=== PATIENT | female | born 1935 | race Caucasian/White ===

== ENCOUNTER 2022-09-04 21:37 | Emergency (ER) | payer MEDICARE ==
[~2022-09-04] VITALS: Ht 165.1 cm; Wt 68.0 kg
[~2022-09-04 21:37] MED LIST: ASPIR 8181 MG PO; ATENOLOL25 MG PO; ATORVASTATIN CA20 MG PO; BACTRIM DS TAB1 EACH PO; BIOTIN1 M1 PO; CYCLOBENZAPRINE10 MG PO; ECHINACEA HERB380 MG PO; FLONASE ALLERG9.9 ML; GLUCOSAMINE CH1 EAC7 PO; LEVOTHYROXINE75 MCG PO; LEXAPRO10 MG PO; LIPITOR20 MG PO; MULTIVITAMINS1 EAC7 PO; PREMARIN30 GM PV; RANITIDINE HCL150 MG PO; VITAMIN D-32000 UNIT PO
--- NOTE | 2022-09-06 22:00 | EKG ---
[facility] [address] [facility] [place] [address] Signed Sinus bradycardia with 1st degree AV block with premature atrial complexes with aberrant conduction Septal infarct , age undetermined Abnormal ECG No previous ECGs available Confirmed by Emiliano Trevizo MD () on 09/06/2022 10:00:25 PM Electronically Signed By: EMILIANO TREVIZO MD [id number] PATIENT NAME: JACKIE SCHRADER RENETTA Electrocardiogram DATE OF : 37 PHYSICIAN: EMILIANO TREVIZO MD REPORT #: [id number] REPORT IS CONFIDENTIAL AND NOT TO BE RELEASED WITHOUT AUTHORIZATION
== END 2022-09-04 23:34 | disposition home or self-care (01) ==
LOC: ED 21:37
DX: I10 Essential (primary) hypertension (principal); E03.9 Hypothyroidism, unspecified; K21.9 Gastro-esophageal reflux disease without esophagitis; E78.00 Pure hypercholesterolemia, unspecified; Z79.899 Other long term (current) drug therapy
CPT/HCPCS: 36415; 71045; 80048; 81003; 84484; 85025; 85379; 99284-25

== ENCOUNTER 2023-12-02 08:05 | Emergency (ER) | payer MEDICARE ==
[~2023-12-02] VITALS: Ht 160 cm; Wt 58.0 kg
[~2023-12-02 08:05] MED LIST changes: +ALENDRONATE SOD70 MG PO; +CEPHALEXIN500 M1 PO; +EYE MULTIVITAM1 EAC4 PO; +IRON256 MG PO; +NORVASC2.5 MG PO; +TURMERIC-GINGE1 EACH PO; +VITAMIN C250 MG PO
[2023-12-02 08:34] LABS: HEMOGLOBIN 11.4 g/dL (12.0-18.0)
[2023-12-02 08:36] LABS: HEMATOCRIT 34.8 % (35.0-50.0); MCH 27.4 (27-36); MCHC 32.8 g/dl (30-36); MCV 83.5 fl (81-99); PLATELET COUNT 319 K/uL (140-440); RBC 4.17 M/ul (4.3-5.7); RDW 14.3 (10.5-15.0)
[2023-12-02 08:45] LABS: ALBUMIN 2.6 g/dL (3.4-5.0); ALBUMIN/GLOBULIN RATIO 0.62 (1.1-2.4); ANION GAP 14.6 (7-21); BILIRUBIN, TOTAL 0.6 ng/dL (0.2-1.0); BUN/CREATININE RATIO 12.85 (6.0-28.6); CREATININE, SERUM 0.7 mg/dL (0.55-1.02); POTASSIUM 3.6 mmol/L (3.5-5.1); PROTEIN, TOTAL 6.8 g/dL (6.4-8.2)
[2023-12-02 08:51] LABS: BANDS, MANUAL DIFF 7; EOSINOPHILS, MANUAL DIFF 1; LYMPHOCYTES, MANUAL DIFF 26; MONOCYTES, MANUAL DIFF 9; NEUTROPHILS, MANUAL DIFF 57
[2023-12-02 09:05] LABS: ABO A; ANTIBODY SCREEN NEGATIVE; RH POSITIVE
[2023-12-02] MEDS ORDERED: ZITHROMAX250 MG PO (09:24)
[2023-12-02] MEDS ORDERED: SODIUM CHLORIDE 0.9% 500 ML IV PRN (09:30)
[2023-12-02] MEDS ORDERED: AZITHROMYCIN/DEXTROSE 500 MG/250 ML BAG IV ONE (09:30)
[2023-12-02 11:30] VITALS: BP 149/85
== END 2023-12-02 11:30 | disposition home or self-care (01) ==
LOC: ED 08:05
PROVIDERS: Emergency Medicine
DX: J18.9 Pneumonia, unspecified organism (principal); E87.1 Hypo-osmolality and hyponatremia; E78.00 Pure hypercholesterolemia, unspecified; I10 Essential (primary) hypertension; Z88.8 Allergy status to other drugs, medicaments and biological substances; Z79.899 Other long term (current) drug therapy
CPT/HCPCS: 36415; 71045; 80053; 85025; 86850; 86900; 86901; 96365; 99284-25; J0456; J7040

== ENCOUNTER 2024-02-08 00:33 | Emergency (ER) | payer MEDICARE ==
[~2024-02-08] VITALS: Ht 160 cm; Wt 58.5 kg
[~2024-02-08 00:33] MED LIST changes: +ZITHROMAX250 MG PO
[2024-02-08 01:22] VITALS: BP 175/85
== END 2024-02-08 01:28 | disposition home or self-care (01) ==
LOC: ED 00:33
DX: L76.22 Postprocedural hemorrhage of skin and subcutaneous tissue following other procedure (principal); I10 Essential (primary) hypertension; Z88.8 Allergy status to other drugs, medicaments and biological substances; Z79.890 Hormone replacement therapy; Z79.899 Other long term (current) drug therapy
CPT/HCPCS: 99283